=== PATIENT | female | born 1985 | race Caucasian/White ===

== ENCOUNTER 2017-06-04 09:54 | Emergency (ER) | payer MEDICAID ==
[~2017-06-04] VITALS: Ht 160 cm; Wt 125.0 kg
[~2017-06-04 09:54] MED LIST: PERC5TAB12 PO
[2017-06-04 10:05] VITALS: BP 135/65; PULSE 73; RESP 18; TEMP 97.4; O2SAT 99
[2017-06-04] MEDS ORDERED: METHOCARBAMOL 500 MG TAB PO ONE (10:30)
[2017-06-04] MEDS ORDERED: predniSONE 20 MG TAB PO ONE (10:30)
[2017-06-04] MEDS ORDERED: RESP: ALBUTEROL 2.5 MG/IPRATROPIUM 0.5 MG NEB (SCH) INH ONE (10:30)
[2017-06-04] MEDS ORDERED: PRED-503 PO (10:37)
[2017-06-04] MEDS ORDERED: VENTAER INH (10:37)
[2017-06-04] MEDS ORDERED: BENZ100 PO (10:37)
[2017-06-04] MEDS ORDERED: IBUP1TAB7 PO (10:37)
[2017-06-04] MEDS ORDERED: ROBA500T PO (10:37)
--- NOTE | 2017-06-04 10:39 | PD ---
HPI Chief Complaint: Cold / Flu Symptoms Time Seen by Provider: 10:30 Travel History International Travel<30 days: No Contact w/Intl Traveler<30days: No Traveled to known affect area: No History of Present Illness HPI 32-year-old female, with history of asthma, presents to the emergency department with complaint of nasal congestion and cough 3-4 days. Reports chest tightness, shortness of breath, wheezing. Has been using her albuterol inhaler with relief of symptoms, but ran out of her inhaler last night. Denies fevers, sore throat, ear pain. Is also complaining of low back pain and says she threw her back out coughing. Denies encopresis, incontinence, saddle anesthesias. Denies IV drug use or cancer. Denies paresthesias, loss of sensation, decreased range of motion, decreased strength to bilateral lower extremities. Denies urinary symptoms. Has been using [id number] cold and flu medications for symptom management. Symptoms are mild to moderate in severity. No known aggravating factors. Symptoms were being relieved with albuterol inhaler. No primary care provider. No known allergies. History of asthma. Has no other medical complaints. No other modifying factors or associated signs and symptoms. PFSH Past Medical History Cardiovascular Problems: No Cerebrovascular Accident: No Diabetes: Yes (gestational) Patient Takes Glucophage: No Gastrointestinal Disorders: No Genitourinary: Yes (kidney stones) Immune Disorder: No Musculoskeletal: No Neurologic: No Respiratory: No Myocardial Infarction: No Tetanus Vaccination: < 5 Years ?: Not : 4 Para: 4 Past Surgical History Section: Yes (x2) Gynecologic Surgery: Yes (2 c-sections) Other Surgery: Yes Social History Alcohol Use: No Tobacco Use: Yes (quit) Substance Use: No Allergies-Medications (Allergen,Severity, Reaction): Coded Allergies: No Known Allergies (Unverified , 08/22/14) Reported Meds & Prescriptions Reported Meds & Active Scripts Active Ibuprofen 800 Mg Tab 800 Mg PO Q6HR PRN Robaxin (Methocarbamol) 500 Mg Tab 500 Mg PO QID PRN Deltasone (Prednisone) 20 Mg Tab 40 Mg PO DAILY 4 Days START 06/05/2017 Tessalon Perles (Benzonatate) 100 Mg Cap 100 Mg PO TID PRN 3 Days Ventolin Hfa 18 GM Inh (Albuterol Sulfate) 90 Mcg/Act Aer 2 Puff INH Q4-6H PRN Reported Percocet 5-325 mg (Oxycodone/Acetaminophen) Oxycodone 5/325 Acetaminophen Tab 1 Tab PO Q4H PRN Review of Systems Except as stated in HPI: all other systems reviewed are Neg Physical Exam Narrative GENERAL: Well-nourished, well-developed female patient, in no acute distress; afebrile, nontoxic-appearing SKIN: Warm and dry. HEAD: Atraumatic. Normocephalic. EYES: Pupils equal and round. No scleral icterus. No injection or drainage. ENT: Mucosa pink and moist. No erythema or exudates. No uvular edema. No uvular , palatal, or tonsillar deviation. Airway patent. Voice is hoarse. EARS: Bilateral pinnae and external canals appear within normal limits. Bilateral tympanic membranes without erythema, dullness or perforation. NECK: Trachea midline. No lymphadenopathy. CARDIOVASCULAR: Regular rate and rhythm. No murmur appreciated. RESPIRATORY: No accessory muscle use. Lungs with mild Wheezing throughout to auscultation. Breath sounds equal bilaterally. No retractions or tachypnea. No Audible wheezing noted. GASTROINTESTINAL: Abdomen soft, non-tender, nondistended. Hepatic and splenic margins not palpable. Bowel sounds are active 4 quadrants. MUSCULOSKELETAL: Bilateral lower extremities supple and non-tense with 2+ pedal pulses and sensory intact; with full range of motion and 5/5 strength. 2 + DTRs bilaterally. Active dorsiflexion and extension of bilateral feet. Bilateral straight leg raise is negative for low back pain. Ambulatory in room with normal gait. Sitting up in bed at 90. No obvious deformities. No clubbing. No cyanosis. No edema. BACK: No midline point tenderness on palpation of the lumbar spine. Tenderness on palpation of bilateral lumbar paraspinal area. No obvious deformities. NEUROLOGICAL: Awake and alert. Oriented 3. No obvious cranial nerve deficits. Motor grossly within normal limits. Normal speech. Moves all extremities. 5/5 strength to all extremities. PSYCHIATRIC: Appropriate mood and affect; insight and judgment normal. Data Data Last Documented VS Vital Signs Date Time Temp Pulse Resp B/P (MAP) Pulse Ox O2 Delivery O2 Flow Rate FiO2 06/04/17 10:05 97.4 73 18 135/65 (88) 99 Orders Orders Prednisone (Deltasone) (06/04/17 10:30) Albuterol-Ipratropium Neb (Duoneb Neb) (06/04/17 10:30) Methocarbamol (Robaxin) (06/04/17 10:30) Ed Discharge Order (06/04/17 10:58) [facility] Medical Decision Making Medical Screen Exam Complete: Yes Emergency Medical Condition: Yes Medical Record Reviewed: Yes Differential Diagnosis Viral illness, asthma exacerbation, acute low back pain, low back strain, muscle spasms of low back Narrative Course 32-year-old female with history of asthma with asthma exacerbation, viral illness, and acute low back pain. Patient is in no acute distress and without retractions or tachypnea. Mild wheezing on auscultation of the lung flannery. Afebrile, nontoxic pain. Denies fever, vomiting. Neuro exam is unremarkable. Denies encopresis, incontinence, saddle anesthesias. Denies IV drug use or cancer. No midline tenderness on palpation of the lumbar spine. DuoNeb, Deltasone, Robaxin administered in the ER. Patient took ibuprofen prior to arrival. 1105: On reexamination the patient reports improvement in symptoms. Denies shortness of breath, chest tightness. Lungs are clear and equal throughout. Discussed viral illness and symptom management. Ibuprofen, Robaxin, Ventolin inhaler, Deltasone, Tessalon Perles prescribed for home. Instructed patient to follow up with primary care provider. Patient verbalizes understanding and agreement with treatment plan. Patient is medically cleared and stable for discharge. Discussed reasons to return to the emergency department. Patient agrees with treatment plan. The patients vital signs are stable and the patient is stable for outpatient follow-up and treatment. Patient discharged home, stable and in no acute distress. Diagnosis Primary Impression: Viral illness Additional Impressions: Asthma exacerbation Qualified Codes: J45.901 - Unspecified asthma with (acute) exacerbation Acute low back pain Qualified Codes: M54.5 - Low back pain Referrals: [facility] Primary Care Physician Patient Instructions: Acute Low Back Pain (ED), Asthma (ED), General Instructions, Low Back Strain (ED) Departure Forms: Tests/Procedures, Work Release Enter return to work date: Jun 06, 2017 Additional Instructions: Use Albuterol inhaler as prescribed Take oral steroids as prescribed and complete full course Use Tessalon Perles as prescribed to decrease coughing spasms [id number] decongestants or antihistamines as directed and as needed for symptom management Drink plenty of fluids to prevent dehydration Use hot air humidifier to decrease cough exacerbation Turn off ceiling fans and sleep with head of bed elevated Avoid triggers such as second hand smoke, dust, known allergens Follow-up with your primary care provider Return to the emergency department immediately with worsening of symptoms Tylenol or ibuprofen as directed and as needed for pain Robaxin as prescribed and as needed for muscle spasms Heating pad and/or ice to affected area to reduce pain Avoid aggravating activities; increase activity as tolerated Follow-up with primary care provider Return to emergency department immediately with worsening of symptoms Med/Other Pt SpecificInfo: Prescription(s) given Scripts Ibuprofen (Ibuprofen) 800 Mg Tab 800 MG PO Q6HR Y for PAIN, #30 TAB 0 Refills Prov: Cher Cardenas 06/04/17 Methocarbamol (Robaxin) 500 Mg Tab 500 MG PO QID Y for MUSCLE SPASM, #30 TAB 0 Refills Prov: Cher Cardenas 06/04/17 Prednisone (Deltasone) 20 Mg Tab 40 MG PO DAILY for 4 Days, #8 TAB 0 Refills START 06/05/2017 Prov: Cher CardenasP 06/04/17 Benzonatate (Tessalon Perles) 100 Mg Cap 100 MG PO TID Y for COUGH for 3 Days, CAP 0 Refills Prov: Cher CardenasP 06/04/17 Albuterol 18 GM Inh (Ventolin Hfa 18 GM Inh) 90 Mcg/Act Aer 2 PUFF INH Q4-6H Y for SOB/WHEEZING, #1 INHALER 0 Refills Prov: Cher Cardenas 06/04/17 Disposition: 01 DISCHARGE HOME Condition: Stable Cher Cardenas Jun 04, 2017 10:38
== END 2017-06-04 11:27 | disposition home or self-care (01) ==
LOC: NEPD 09:54
DX: B34.9 Viral infection, unspecified (principal); J45.901 Unspecified asthma with (acute) exacerbation; M54.5 Low back pain; Z87.891 Personal history of nicotine dependence
CPT/HCPCS: 94664; 99283; J7512